=== PATIENT | male | born 1965 | race Caucasian/White ===

== ENCOUNTER 2022-12-05 14:51 | Emergency (ER) | payer OTHER, SELFPAY ==
[2022-12-05] VITALS (10 sets, daily range): BP systolic 132–172; BP diastolic 83–101; PULSE 90–106; RESP 16; TEMP 36.5; O2SAT 97–100; BMI 25.7
--- NOTE | 2022-12-05 15:07 | DI.RAD.S_ITS ---
PROCEDURE: XR CHEST 1V INDICATIONS: chest pain TECHNIQUE: One view of the chest was acquired. COMPARISON: None. FINDINGS: Surgical changes and devices: None. Lungs and pleura: Lungs are clear. No pleural effusions or pneumothorax. Mediastinum: Mediastinal contours appear normal. Heart size is normal. Bones and chest wall: No suspicious bony lesions. Overlying soft tissues appear unremarkable. IMPRESSION: No acute cardiopulmonary process. Dictated by: Perry Sharma M.D. on 12/05/2022 at 16:27 Approved by: Perry Sharma M.D. on 12/05/2022 at 16:27
[2022-12-05 15:42] LABS: Add Manual Diff / Slide Review NO; Basophils Absolute Auto 0 /uL (0-100); Basophils Percent Auto 0.3 % (0-2); Eosinophils Absolute Auto 100 /uL (0-450); Eosinophils Percent Auto 0.7 % (2-4); Hematocrit 36.8 % (41-53); Hemoglobin 12.5 g/dL (13.5-17.5); Lymphocytes Absolute Auto 1100 /uL (1100-4500); Lymphocytes Percent Auto 12.8 % (25-40); Mean Corpuscular HGB Conc 34.1 % (30-36); Mean Corpuscular Hemoglobin 28.7 PG (26-34); Mean Corpuscular Volume 84.3 fL (80-100); Monocytes Absolute Auto 300 /uL (0-900); Monocytes Percent Auto 3.5 % (3-14); Neutrophils Absolute Auto 7300 /uL (1500-7000); Neutrophils Percent Auto 82.7 % (50-75); Platelet Count 270 X10^3/uL (150-400); Red Blood Cell Count 4.36 X10^6/uL (4.5-5.9); Red Cell Distribution Width 13.7 % (11.6-14.8); White Blood Cell Count 8.9 X10^3/uL (4.5-11.0)
[2022-12-05 15:49] LABS: Alanine Aminotransferase 20 IU/L (<50); Albumin 4.5 g/dL (3.5-5.0); Albumin Globulin Ratio 1.3 (1.0-2.8); Alkaline Phosphatase 95 U/L (38-126); Aspartate Aminotransferase 21 IU/L (17-59); BUN Creatinine Ratio 16.6 (6-22); Bilirubin Total 0.4 mg/dL (0.2-1.3); Blood Urea Nitrogen 28 mg/dL (9-20); Calcium 9.4 mg/dL (8.4-10.2); Carbon Dioxide 23 mmol/L (22-32); Chloride 100 mmol/L (98-107); Creatine Kinase 70 U/L (55-170); Estimated Glomerular Filt Rate 47 mL/min (>60); Globulin 3.4 g/dL (1.7-4.1); Glucose 252 mg/dL (70-100); HEMOLYSIS < 15 (0-50); Lipase 142 U/L (23-300); Magnesium 2.1 mg/dL (1.6-2.3); Potassium 4.8 mmol/L (3.4-5.1); Sodium 136 mmol/L (137-145); Total Protein 7.9 g/dL (6.3-8.2)
[2022-12-05 15:53] LABS: Prothrombin Time 11.3 SECONDS (10.1-12.7)
[2022-12-05 15:56] LABS: PTT Partial Thromboplastin Tim 30 SECONDS (26-36)
[2022-12-05 16:00] LABS: Troponin I < 0.012 ng/mL (0.01-0.034)
--- NOTE | 2022-12-05 16:00 | PC.NURSE ---
Pt reports a few weeks ago his blood sugar was 500 and his potassium was 6.1. Pt saw his primary. Pt adjusted diet and report everything is fine, but then I woke up today like this.
[2022-12-05 17:25] LABS: Appearance Urine UA CLEAR; Bilirubin Urine UA NEGATIVE (NEGATIVE); Color Urine UA YELLOW; Glucose Urine UA 3+ g/dL (Negative); Ketones Urine UA NEGATIVE (NEGATIVE); Leukocyte Esterase Urine UA NEGATIVE (NEGATIVE); Nitrite Urine UA NEGATIVE (Negative); Occult Blood Urine UA TRACE-INTACT (Negative); Protein Urine UA 1+ (Negative); Urobilinogen Urine UA 0.2 E.U./dL (0.2)
[2022-12-05 17:37] LABS: Bacteria Urine None Seen; RBC Urine 0-1/HPF (0-5/HPF); Squamous Epithelial Cell Urine None Seen (0-5/HPF); WBC Urine None Seen (0-5/HPF)
[2022-12-05 17:38] LABS: Culture Indicated Urine Cult Not Indicated
[2022-12-05] MEDS: SODIUM CHLORIDE 0.9% 1,000 ML 1000 ML IV (17:38)
--- NOTE | 2022-12-05 19:01 | ED.GENADULT ---
HPI - General Adult General Chief complaint: Dizziness Stated complaint: LOC twice this morning, dizzy Time Seen by Provider: 12/05/22 17:01 Source: patient Mode of arrival: Ambulatory History of Present Illness HPI narrative: Patient is a 57-year-old male who is a diabetic. Is here for evaluation of episodes that occurred this morning. He states he got up out of bed and had a sudden onset of dizziness. He then fell and hit his right shoulder. He states he has some issues with his right shoulder and cause more discomfort. He was getting up to go to the bathroom in the event have not. He went and laid back down in bed. This happened to him once again. He has been taking his medicines. He reports that his blood sugars have been elevated at home. At the time of the events he was not having chest pain and shortness of breath or palpitations. Will vomiting. By the time I evaluated the patient here received IV fluids. He states he was feeling better. Related Data Allergies Allergy/AdvReac Type Severity Reaction Status Date / Time No Known Drug Allergies Allergy Verified 12/05/22 15:00 Review of Systems Review of Systems ROS Unobtainable: All systems reviewed & are unremarkable except as noted in HPI and below Patient History Social History Smoking Status: Never smoker Smoking Status: Never smoker Substance Use Type: does not use Exam Initial Vital Signs Initial Vital Signs: Vital Signs Temperature 97.7 F 12/05/22 15:00 Pulse Rate 104 H 12/05/22 15:00 Respiratory Rate 16 12/05/22 15:00 Blood Pressure 147/91 H 12/05/22 15:00 Pulse Oximetry 99 12/05/22 15:00 Oxygen Delivery Method Room Air 12/05/22 15:00 Const General: cooperative and comfortable HENMT Head: normal to inspection and normocephalic Resp Effort & Inspection: normal respiratory effort Auscultation: clear to auscultation bilaterally Cardio Rate: regular rate Rhythm: regular rhythm GI Inspection: normal to inspection and non-distended Skin General: no rashes or lesions noted Neuro General: patient alert, patient awake, patient oriented x3 and moves all extremities Extrem General: normal to inspection and capillary refill normal Course Orders Ordered: ED Orders 12/05/22 17:07 UA Complete [Urinalysis and Microscopic] Stat Discontinued Medications Aspirin (Aspirin 81 Mg Chew Tab) 324 mg PO NOW ONE Stop: 12/05/22 15:08 Last Admin: 12/05/22 15:19 Dose: Not Given Documented By: SB Sodium Chloride (Normal Saline 0.9%) 1,000 mls @ 1,000 mls/hr IV BOLUS ONE Stop: 12/05/22 18:00 Last Infusion: 12/05/22 18:52 Dose: 0 mls/hr Documented By: Admin: 12/05/22 17:38 Dose: 1,000 mls/hr Documented By: KAT Vital Signs Vital signs: Vital Signs - 8 hr 12/05/22 18:11 12/05/22 20:32 Pulse Rate 93 H 92 H Blood Pressure 172/97 H 172/101 H Pulse Oximetry 100 97 Oxygen Delivery Method Room Air Room Air Medical Decision Making Lab Data Lab results reviewed: Yes I reviewed the patient's lab results. 12/05/22 15:25 12/05/22 15:25 Labs: Lab Results 12/05/22 12/05/22 12/05/22 Range/Units 15:25 15:25 15:25 WBC 8.9 (4.5-11.0) X10^3/uL RBC 4.36 L (4.5-5.9) X10^6/uL Hgb 12.5 L (13.5-17.5) g/dL Hct 36.8 L (41-53) % MCV 84.3 (80-100) fL MCH 28.7 (26-34) PG MCHC 34.1 (30-36) % RDW 13.7 (11.6-14.8) % Plt Count 270 (150-400) X10^3/uL Neut % (Auto) 82.7 H (50-75) % Lymph % (Auto) 12.8 L (25-40) % [place] % (Auto) 3.5 (3-14) % Eos % (Auto) 0.7 L (2-4) % Baso % (Auto) 0.3 (0-2) % Neut # (Auto) 7300 H (2550-7703) /uL Lymph # (Auto) 1100 (7694-8885) /uL [place] # (Auto) 300 (0-900) /uL Eos # (Auto) 100 (0-450) /uL Baso # (Auto) 0 (0-100) /uL PT 11.3 (10.1-12.7) SECONDS INR 1.0 (0.9-1.3) APTT 30 (26-36) SECONDS Sodium 136 L (137-145) mmol/L Potassium 4.8 (3.4-5.1) mmol/L Chloride 100 (98-107) mmol/L Carbon Dioxide 23 (22-32) mmol/L BUN 28 H (9-20) mg/dL Creatinine 1.69 H (0.66-1.25) mg/dL Estimated GFR 47 L (>60) mL/min BUN/Creatinine Ratio 16.6 (6-22) Glucose 252 H (70-100) mg/dL Calcium 9.4 (8.4-10.2) mg/dL Magnesium 2.1 (1.6-2.3) mg/dL Total Bilirubin 0.4 (0.2-1.3) mg/dL AST 21 (17-59) IU/L ALT 20 (<50) IU/L Alkaline Phosphatase 95 (38-126) U/L Total Creatine Kinase 70 (55-170) U/L CK-MB (CK-2) TNP CK-MB (CK-2) Rel Index TNP Troponin I < 0.012 (0.01-0.034) ng/mL Total Protein 7.9 (6.3-8.2) g/dL Albumin 4.5 (3.5-5.0) g/dL Globulin 3.4 (1.7-4.1) g/dL Albumin/Globulin Ratio 1.3 (1.0-2.8) Lipase 142 (23-300) U/L Urine Color Urine Appearance Urine pH (4.5-8.0) Ur Specific [place] (1.000-1.035) Urine Protein (Negative) Urine Glucose (UA) (Negative) g/dL Urine Ketones (NEGATIVE) Urine Occult Blood (Negative) Urine Nitrate (Negative) Urine Bilirubin (NEGATIVE) Urine Urobilinogen (0.2) E.U./dL Ur Leukocyte Esterase (NEGATIVE) Urine RBC (0-5/HPF) Urine WBC (0-5/HPF) Ur Squamous Epith Cells (0-5/HPF) Urine Bacteria (None) Ur Culture Indicated? 06/12/23 Range/Units 17:07 WBC (4.5-11.0) X10^3/uL RBC (4.5-5.9) X10^6/uL Hgb (13.5-17.5) g/dL Hct (41-53) % MCV (80-100) fL MCH (26-34) PG MCHC (30-36) % RDW (11.6-14.8) % Plt Count (150-400) X10^3/uL Neut % (Auto) (50-75) % Lymph % (Auto) (25-40) % [place] % (Auto) (3-14) % Eos % (Auto) (2-4) % Baso % (Auto) (0-2) % Neut # (Auto) (6303-0163) /uL Lymph # (Auto) (2025-3676) /uL [place] # (Auto) (0-900) /uL Eos # (Auto) (0-450) /uL Baso # (Auto) (0-100) /uL PT (10.1-12.7) SECONDS INR (0.9-1.3) APTT (26-36) SECONDS Sodium (137-145) mmol/L Potassium (3.4-5.1) mmol/L Chloride (98-107) mmol/L Carbon Dioxide (22-32) mmol/L BUN (9-20) mg/dL Creatinine (0.66-1.25) mg/dL Estimated GFR (>60) mL/min BUN/Creatinine Ratio (6-22) Glucose (70-100) mg/dL Calcium (8.4-10.2) mg/dL Magnesium (1.6-2.3) mg/dL Total Bilirubin (0.2-1.3) mg/dL AST (17-59) IU/L ALT (<50) IU/L Alkaline Phosphatase (38-126) U/L Total Creatine Kinase (55-170) U/L CK-MB (CK-2) CK-MB (CK-2) Rel Index Troponin I (0.01-0.034) ng/mL Total Protein (6.3-8.2) g/dL Albumin (3.5-5.0) g/dL Globulin (1.7-4.1) g/dL Albumin/Globulin Ratio (1.0-2.8) Lipase (23-300) U/L Urine Color Yellow Urine Appearance Clear Urine pH 6.0 (4.5-8.0) Ur Specific [place] 1.010 (1.000-1.035) Urine Protein 1+ H (Negative) Urine Glucose (UA) 3+ H (Negative) g/dL Urine Ketones Negative (NEGATIVE) Urine Occult Blood Trace-intact (Negative) Urine Nitrate Negative (Negative) Urine Bilirubin Negative (NEGATIVE) Urine Urobilinogen 0.2 (0.2) E.U./dL Ur Leukocyte Esterase Negative (NEGATIVE) Urine RBC 0-1/hpf (0-5/HPF) Urine WBC None seen (0-5/HPF) Ur Squamous Epith Cells None seen (0-5/HPF) Urine Bacteria None seen (None) Ur Culture Indicated? Cult not indicated Point of Care Testing Glucose POC 245 Urine Dip Bedside Urine Glucose 1000 mg/dl Bedside Urine Bilirubin - Negative Bedside Urine Ketone - Negative Urine Specific [place] 1.010 Bedside Urine Occult Blood - Negative Bedside Urine pH 6.0 Bedside Urine Protein +/- 15 Bedside Urine Urobilinogen - Negative Bedside Urine Nitrite - Negative Bedside Urine Leukocytes - Negative Esterase Point of care testing: Point of Care Testing Glucose POC 245 Urine Dip Bedside Urine Glucose 1000 mg/dl Bedside Urine Bilirubin - Negative Bedside Urine Ketone - Negative Urine Specific [place] 1.010 Bedside Urine Occult Blood - Negative Bedside Urine pH 6.0 Bedside Urine Protein +/- 15 Bedside Urine Urobilinogen - Negative Bedside Urine Nitrite - Negative Bedside Urine Leukocytes - Negative Esterase Imaging Data Chest x-ray: Radiologist's Impression: PROCEDURE:? XR CHEST 1V ? INDICATIONS:? chest pain ? TECHNIQUE:? One view of the chest was acquired.? ? COMPARISON:? None. ? FINDINGS:? ? Surgical changes and devices:? None.? ? Lungs and pleura:? Lungs are clear.? No pleural effusions or pneumothorax.? ? Mediastinum:? Mediastinal contours appear normal.? Heart size is normal.? ? Bones and chest wall:? No suspicious bony lesions.? Overlying soft tissues appear unremarkable.? ? IMPRESSION:? No acute cardiopulmonary process. ECG Data Attestation: I personally reviewed and interpreted this ECG as follows: Interpretation: Sinus rhythm Ventricular rate of 98 Normal axis Normal QRS Normal QTC Nonspecific ST T wave changes MDM Narrative Medical decision making narrative: Workup here in the emergency department is unremarkable. He is afebrile. Labs are unremarkable except that he is hyperglycemic but he is not in DKA. He does feel better after fluids. No further workup required here in the emergency department. Low suspicion for seizure, stroke, TIA, or ACS. Patient does not have an arrhythmia on his EKG. Provided reassurance to the patient. Advised that he continue to take all of his medications as directed. He was given return precautions. He expressed understanding and agreement. Discharge Plan Departure Patient Disposition: Home Clinical Impression: Hyperglycemia, Dizziness Instructions: DI for Dizziness-Nonvertigo Activity Restrictions/Additional Instructions: I do recommend that you increase your fluid intake. Be sure that you were taking all of your medications as directed. Return to the emergency department for new or worsening symptoms. Stand Alone Forms: Patient Portal/API
--- NOTE | 2022-12-05 19:02 | PC.NURSE ---
Ambulation trial per provider direction. Pt sits up and feels a little dizzy, but then it subsides quickly. Pt able to ambulate with no difficultly. Steady on feet. Pt reports I feel so much better, I'm ready to go home. Provider made aware.
== END 2022-12-05 20:35 | disposition home or self-care (01) ==
PROVIDERS: Emergency Medicine; Emergency Provider Emergency Medicine
DX: E11.65 Type 2 diabetes mellitus with hyperglycemia (principal); R42 Dizziness and giddiness; R07.9 Chest pain, unspecified; W18.30XA Fall on same level, unspecified, initial encounter
CPT/HCPCS: 36415; 71045; 80053; 81001; 81003; 82550; 82962; 83690; 83735; 84484; 85025; 85610; 85730; 93005; 99284

== ENCOUNTER → 2022-12-30 18:42 | Outpatient (CLI) | payer OTHER, SELFPAY ==
--- NOTE | 2022-12-30 18:44 | DI.MRI.S_ITS ---
PROCEDURE: MR SHOULDER RT WO CON INDICATIONS: RIGHT SHOULDER PAIN TECHNIQUE: Noncontrast oblique coronal T2 fast spin echo with fat saturation, oblique sagittal T1 spin echo and T2 fast spin echo with fat saturation, axial T1 spin echo and T2 fast spin echo with fat saturation through the shoulder. COMPARISON: Non. FINDINGS: Image quality: Excellent. Rotator cuff: There is intermediate-grade partial-thickness tear of the supraspinatus and subscapularis tendons involving both articular and bursal surfaces, as well as the footprint. There is moderate to severe tendinosis of the supraspinatus and subscapularis tendons. No supraspinatus or subscapularis tendon retraction muscle atrophy. Low-grade partial thickness tear is seen in the footprint of the infraspinatus. No infraspinatus muscle atrophy. Bones and bursae: No bone marrow contusions or fractures. There is moderate acromioclavicular and glenohumeral joint degeneration. The acromion demonstrates conventional anatomy, without an os acromiale. There is small glenohumeral joint effusion.. Capsule and soft tissues: There is superior labral tear involving the biceps anchor. The long head of the biceps tendon demonstrates normal location and morphology. The rotator interval appears normal, without fibrosis. The coracohumeral ligament is normal in thickness. IMPRESSION: 1. Intermediate grade partial-thickness tear of the supraspinatus and subscapularis tendons and associated [id number] tendinosis. 2. Low-grade partial-thickness tear of the infraspinatus tendon. 3. Moderate acromioclavicular and glenohumeral joint degeneration. 4. Superior labral tear involving the biceps anchor. 5. Small glenohumeral joint effusion. Dictated by: Robina Spears M.D. on 01/02/2023 at 11:04 Approved by: Robina Spears M.D. on 01/02/2023 at 11:13
== END ==
PROVIDERS: Referring Provider Family Medicine; Visit Provider Family Medicine
DX: M75.111 Incomplete rotator cuff tear or rupture of right shoulder, not specified as traumatic (principal); M19.011 Primary osteoarthritis, right shoulder; S43.491A Other sprain of right shoulder joint, initial encounter; M25.411 Effusion, right shoulder; M25.519 Pain in unspecified shoulder; R53.1 Weakness; R29.898 Other symptoms and signs involving the musculoskeletal system
CPT/HCPCS: 73221

== ENCOUNTER 2023-04-27 12:41 | Emergency (ER) | payer OTHER, SELFPAY ==
[2023-04-27 12:59] VITALS: BP 139/89; PULSE 105; RESP 20; TEMP 36.9; O2SAT 99; BMI 25.0
--- NOTE | 2023-04-27 13:17 | PC.NURSE ---
provider at bedside
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
--- NOTE | 2023-04-27 13:18 | PC.NURSE ---
put in C-collar due to neck pain
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
--- NOTE | 2023-04-27 13:39 | PC.NURSE ---
back from CT scan
[2023-04-27 13:40] VITALS: BP 156/83; PULSE 98; RESP 18; O2SAT 98
[2023-04-27] MEDS: ACETAMINOPHEN 325 MG TABLET 650 MG PO (13:50)
[2023-04-27 13:54] VITALS: BP 155/96; PULSE 95; RESP 20; TEMP 37; O2SAT 100
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
[2023-04-27 14:30] VITALS: BP 158/95; PULSE 90; RESP 18; O2SAT 100
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
[2023-04-27 15:55] VITALS: BP 155/97; PULSE 90; TEMP 37.2; O2SAT 99
== END 2023-04-27 15:57 | disposition home or self-care (01) ==
PROVIDERS: Emergency Provider Physician Assistant
DX: S16.1XXA Strain of muscle, fascia and tendon at neck level, initial encounter (principal); V89.2XXA Person injured in unspecified motor-vehicle accident, traffic, initial encounter
CPT/HCPCS: 70450; 72125; 99284

== ENCOUNTER 2024-03-10 18:46 | Inpatient (IN) | payer OTHER, SELFPAY ==
[2024-03-10] VITALS (24 sets, daily range): BP systolic 95–174; BP diastolic 64–103; PULSE 44–102; RESP 13–20; TEMP 36.6–36.7; O2SAT 94–100; BMI 25.0
--- NOTE | 2024-03-10 18:54 | DI.CT.S_ITS ---
PROCEDURE: CT ANGIO HEAD AND NECK INDICATIONS: Facial numbness, ataxia TECHNIQUE: After the administration of intravenous contrast, 1 mm thick sections acquired from the aortic arch through the [place] of Neil. 3-dimensional wetiulj-dqdsizvsd-czoxhfdquf (MIP) and/or volume rendering reformats were acquired of the central intracranial vasculature and neck separately. For radiation dose reduction, the following was used: automated exposure control, adjustment of mA and/or kV according to patient size. COMPARISON: None. FINDINGS: Image quality: Diagnostic HEAD ANGIOGRAPHY: Anterior circulation: ICAs: Moderate left and moderate to severe right cavernous carotid calcifications ACAs: Patent, but with moderate narrowing of the right A1 segment MCAs: Patent AComm: No aneurysm Venous sinuses: No occlusive thrombus Posterior circulation: Dominance: Right Vertebral arteries: The left vertebral artery appears to terminate in PICA. Etwx-av-[id number] irregularity of the right vertebral artery. Basilar artery: Sflv-ud-uybfgjrp irregularity PComms: Dominant supply on the right. Equal supply on the left with the MANUFACTURING TEST TECHNICIAN project superintendent: patent, but with thwr-po-wxandhci irregularities. NECK ANGIOGRAPHY: Aortic arch and subclavian arteries: Mild atherosclerotic calcifications CCAs: No stenosis, occlusion, or aneurysm. ICA origins (by NASCET criteria): Mild calcifications with less than 50 percent narrowing ICAs: No stenosis, occlusion or aneurysm. ECAs: Origins are patent. Vertebral arteries: Mild calcifications in the right proximal segment. Soft tissues: No significant mass, aneurysm, or lymphadenopathy Lung apices: No apical pneumothorax Bones: No acute or suspicious abnormality. 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 Multifocal irregularities of the intracranial vasculature, most notably the right A1, bilateral project superintendent, and vertebrobasilar arteries. These may represent intracranial atherosclerosis, less commonly also vasculitis and vasospasm. If there is further concern for infarct, consider MRI. Any quantitative measurements of stenosis were performed using NASCET criteria. Dictated by: Stan May M.D. on 03/10/2024 at 19:47 Approved by: Stan May M.D. on 03/10/2024 at 19:53
--- NOTE | 2024-03-10 18:55 | ED.GENADULT ---
HPI - General Adult General Chief complaint: Neuro Symptoms/Deficit Stated complaint: Feel like having a stroke Time Seen by Provider: 03/10/24 18:50 Source: patient and family Mode of arrival: Ambulatory Limitations: no limitations History of Present Illness HPI narrative: Patient is a 58-year-old male. Insulin-dependent diabetic. Not on anticoagulation. No history of cardiovascular or neurologic disease who presents to the emergency department for concerns of a stroke. He states that approximately 530 this morning he woke up. He states he went to go turn off the fan and use the restroom when he stated that he was very unsteady on his feet. He felt like his left side was weak. He actually did fall but did not injure anything. Did not hit his head. He did not arrived to the emergency department until this evening. He states he slept most of the day. He denies headache, vision changes, problems breathing, chest pain, abdominal pain, nausea vomiting. He states he feels like he was having tingling to the left side of his face and also the fingertips of his left hand. He noticed this when he tried to brush his teeth this morning. He also states that he feels like he was weak in his left arm. His symptoms have been persistent throughout the day. Do not wax and wane. Has not improved. Has never had symptoms like this in the past. Has not tried anything for symptoms prior to arrival. Related Data Allergies Allergy/AdvReac Type Severity Reaction Status Date / Time No Known Drug Allergies Allergy Verified 12/05/22 15:00 Review of Systems Review of Systems ROS Unobtainable: All systems reviewed & are unremarkable except as noted in HPI and below Patient History Social History Smoking Status: Never smoker Smoking Status: Never smoker Substance Use Type: does not use Exam Initial Vital Signs Initial Vital Signs: Vital Signs Temperature 98.1 F 03/10/24 18:49 Pulse Rate 102 H 03/10/24 18:49 Respiratory Rate 16 03/10/24 18:49 Blood Pressure 165/100 H 03/10/24 18:49 Pulse Oximetry 98 03/10/24 18:49 Oxygen Delivery Method Room Air 03/10/24 18:49 Const General: cooperative, comfortable and No ill appearing HENMT Head: normal to inspection and normocephalic Mouth: oral mucosae normal and moist mucous membranes Eyes EOM: EOM intact bilaterally Resp Effort & Inspection: normal respiratory effort Auscultation: clear to auscultation bilaterally Cardio Rate: regular rate Rhythm: regular rhythm GI Inspection: normal to inspection and non-distended Palpation: soft Skin General: no rashes or lesions noted Neuro General: patient alert, patient awake, patient oriented x3 and moves all extremities Cranial Nerves: CN's II-XI intact bilaterally Speech: speech normal Motor: strength 5/5 throughout Sensory Exam: no sensory deficits noted Coordination: [id number]-[id number] test normal and ldff-ep-izel test normal Extrem General: normal to inspection, capillary refill normal and No edema Scores GCS [place] coma scale eye opening: Spontaneous [place] coma scale verbal response: Orientated [place] coma scale motor response: Obey commands Rosalie coma scale total score: 15 NIH Stroke Scale Level of Conciousness: Alert, keenly responsive Ask month/age: Answers both questions correctly. Open/close eyes, close hand: Performs both tasks correctly Best gaze horizontal: Normal Visual jackson: No visual loss Facial palsy: Normal symetrical movement Left arm drift: No drift for full 10 sec Right arm drift: No drift for full 10 sec Left leg drift: No drift for full 5 sec Right leg drift: No drift for full 5 sec Limb ataxia: Absent Sensory on face/arms/legs: Normal, no sensory loss Best language: No aphasia, normal Dysarthria: Normal Extinction or inattention: No abnormality Total NIH Stroke scale score: 0 Course Orders Ordered: ED Orders 03/10/24 18:51 EKG-12 Lead Stat 03/10/24 18:54 CT angio head and neck Stat CT head/brain wo con Stat 03/10/24 18:59 A1C [Hemoglobin A1C% w Est Avg Glu] Stat Complete Blood Count AUTO DIFF Stat Comprehensive Metabolic Panel Stat Ethanol (ETOH) Stat Lipase Stat Magnesium Stat PTT Partial Thromboplastin Enrrique Stat Prothrombin Time INR Stat Troponin & CK Cardiac Panel Stat 03/10/24 19:50 Urinalysis and Microscopic Stat Acetaminophen (Acetaminophen 325 Mg Tablet) 650 mg PO Q6H PRN PRN Reason: Fever/Mild Pain (1-3) Aspirin (Aspirin Ec 81 Mg Tablet) 81 mg PO DAILY [facility] Clopidogrel Bisulfate (Clopidogrel 75 Mg Tablet) 75 mg PO DAILY [facility] Heparin Sodium (Porcine) (Heparin 5,000 Unit/Ml Vial) 5,000 unit SUBCUT BID ADRIÁN Sodium Chloride (Normal Saline 0.9%) 1,000 mls @ 100 mls/hr IV CONT ADRIÁN Naloxone HCl (Naloxone 0.4 Mg/Ml Vial) 0.2 mg IV Q2MIN PRN PRN Reason: Opiate Reversal Ondansetron HCl (Ondansetron 4 Mg/2 Ml Inj) 4 mg IV Q8HR PRN PRN Reason: Nausea And Vomiting Discontinued Medications Aspirin (Aspirin 81 Mg Chew Tab) 324 mg PO NOW ONE Stop: 03/10/24 20:18 Last Admin: 03/10/24 20:25 Dose: 324 mg Documented By: JOSE LUIS Clopidogrel Bisulfate (Clopidogrel 75 Mg Tablet) 300 mg PO NOW ONE Stop: 03/10/24 20:38 Last Admin: 03/10/24 20:43 Dose: 300 mg Documented By: MPO Sodium Chloride (Normal Saline 0.9%) 1,000 mls @ 500 mls/hr IV BOLUS ONE Stop: 03/10/24 21:11 Last Admin: 03/10/24 19:18 Dose: 500 mls/hr Documented By: MPO Ondansetron HCl (Ondansetron 4 Mg/2 Ml Inj) 4 mg IV NOW ONE Stop: 03/10/24 19:17 Last Admin: 03/10/24 19:18 Dose: 4 mg Documented By: JOSE LUIS Vital Signs Vital signs: Vital Signs - 8 hr 03/10/24 18:49 03/10/24 18:51 03/10/24 18:56 Temperature 98.1 F Pulse Rate 102 H 102 H Respiratory Rate 16 Blood Pressure 165/100 H 165/103 H Pulse Oximetry 98 99 Oxygen Delivery Method Room Air 03/10/24 18:56 03/10/24 19:00 03/10/24 19:09 Temperature Pulse Rate 98 H 95 H 56 L Respiratory Rate 13 13 17 Blood Pressure Pulse Oximetry Oxygen Delivery Method 03/10/24 19:09 03/10/24 19:10 03/10/24 19:13 Temperature Pulse Rate 44 L 58 L Respiratory Rate 20 Blood Pressure 95/64 100/67 Pulse Oximetry Oxygen Delivery Method 03/10/24 19:13 03/10/24 19:14 03/10/24 19:14 Temperature Pulse Rate 73 78 Respiratory Rate 14 15 Blood Pressure 125/84 Pulse Oximetry 97 98 Oxygen Delivery Method 03/10/24 19:36 03/10/24 19:40 03/10/24 19:56 Temperature Pulse Rate 87 88 Respiratory Rate Blood Pressure 174/84 H Pulse Oximetry 94 100 Oxygen Delivery Method 03/10/24 19:56 03/10/24 20:00 03/10/24 20:00 Temperature Pulse Rate 87 89 Respiratory Rate 18 Blood Pressure 164/98 H Pulse Oximetry 99 100 Oxygen Delivery Method 03/10/24 20:10 03/10/24 20:10 03/10/24 20:20 Temperature Pulse Rate 86 Respiratory Rate Blood Pressure 135/83 136/84 Pulse Oximetry 99 Oxygen Delivery Method 03/10/24 20:20 03/10/24 20:30 03/10/24 20:30 Temperature Pulse Rate 87 89 Respiratory Rate Blood Pressure 134/87 Pulse Oximetry 100 98 Oxygen Delivery Method 03/10/24 20:40 03/10/24 20:40 Temperature Pulse Rate 89 Respiratory Rate Blood Pressure 133/85 Pulse Oximetry 97 Oxygen Delivery Method Medical Decision Making Medical Records Medical records reviewed: Yes I reviewed the patient's medical records. Lab Data Lab results reviewed: Yes I reviewed the patient's lab results. 03/10/24 18:59 03/10/24 18:59 Labs: Lab Results 03/10/24 03/10/24 Range/Units 18:59 19:50 WBC 7.2 (4.5-11.0) X10^3/uL RBC 4.87 (4.5-5.9) X10^6/uL Hgb 13.6 (13.5-17.5) g/dL Hct 41.7 (41-53) % MCV 85.7 (80-100) fL MCH 27.9 (26-34) PG MCHC 32.5 (30-36) % RDW 13.8 (11.6-14.8) % Plt Count 346 (150-400) X10^3/uL Neut % (Auto) 58.7 (50-75) % Lymph % (Auto) 31.2 (25-40) % [place] % (Auto) 5.7 (3-14) % Eos % (Auto) 3.6 (2-4) % Baso % (Auto) 0.8 (0-2) % Neut # (Auto) 4300 (1407-3676) /uL Lymph # (Auto) 2300 (3809-9894) /uL [place] # (Auto) 400 (0-900) /uL Eos # (Auto) 300 (0-450) /uL Baso # (Auto) 100 (0-100) /uL PT 9.8 (9.4-12.5) SECONDS INR 0.9 (0.9-1.3) APTT 38 H (25.1-36.5) SECONDS Sodium 132 L (137-145) mmol/L Potassium 5.0 (3.4-5.1) mmol/L Chloride 100 (98-107) mmol/L Carbon Dioxide 20 L (22-32) mmol/L BUN 34 H (9-20) mg/dL Creatinine 1.75 H (0.66-1.25) mg/dL Estimated GFR 45 L (>60) mL/min BUN/Creatinine Ratio 19.4 (6-22) Glucose 327 H (70-100) mg/dL Hemoglobin A1c 13.2 H (4.0-6.0) % Calcium 9.2 (8.4-10.2) mg/dL Magnesium 2.3 (1.6-2.3) mg/dL Total Bilirubin 0.4 (0.2-1.3) mg/dL AST 20 (17-59) IU/L ALT 14 (<50) IU/L Alkaline Phosphatase 108 (38-126) U/L Total Creatine Kinase 58 (55-170) U/L Troponin I < 0.012 (0.01-0.034) ng/mL Total Protein 7.5 (6.3-8.2) g/dL Albumin 4.2 (3.5-5.0) g/dL Globulin 3.3 (1.7-4.1) g/dL Albumin/Globulin Ratio 1.3 (1.0-2.8) Lipase 296 (23-300) U/L Urine Color Yellow Urine Appearance Clear Urine pH 7.0 (4.5-8.0) Ur Specific [place] <=1.005 (1.000-1.035) Urine Protein Trace H (Negative) Urine Glucose (UA) 3+ H (Negative) g/dL Urine Ketones Negative (NEGATIVE) Urine Occult Blood Negative (Negative) Urine Nitrate Negative (Negative) Urine Bilirubin Negative (NEGATIVE) Urine Urobilinogen 0.2 (0.2) E.U./dL Ur Leukocyte Esterase Negative (NEGATIVE) Urine RBC 0-1/hpf (0-5/HPF) Urine WBC 0-1/hpf (0-5/HPF) Ur Squamous Epith Cells 0-1 /hpf (0-5/HPF) Urine Bacteria Occasional (0-1) (None) Ur Culture Indicated? Cult not indicated Vol Urine Centrifuged 10ml (spun) Ethyl Alcohol < 10 ( - 10) mg/dL Point of Care Testing Glucose POC 324 Point of care testing: Point of Care Testing Glucose POC [address] scan - head: Radiologist's Impression: PROCEDURE: CT HEAD/BRAIN WO CON INDICATIONS: Facial numbness, balance issues TECHNIQUE: Noncontrast 4.5 mm thick angled axial sections acquired from the foramen magnum to the vertex, with coronal and sagittal reformats. For radiation dose reduction, the following was used: automated exposure control, adjustment of mA and/or kV according to patient size. COMPARISON: [facility], CT, CT HEAD/BRAIN WO CON, 04/27/2023, 14:54. FINDINGS: Image quality: Diagnostic CSF spaces: Basal cisterns are patent. Lateral ventricles are symmetric. Volume: Vascular calcifications. Periventricular white matter disease is commonly seen with chronic microangiopathy. Volume loss is present. These findings are mild Brain: No acute hemorrhage. No gross loss of richardson-white differentiation Possible right lacunar infarct, age indeterminate Craniofacial structures: No significant paranasal sinus or mastoid opacity. IMPRESSION: No acute intracranial abnormality. If there is high concern for infarct, consider MRI. Age-indeterminate, chronic appearing right deep white matter possible lacunar infarct. CTA - brain/neck: Radiologist's Impression: ROCEDURE:? CT ANGIO HEAD AND NECK ? INDICATIONS:? Facial numbness, ataxia ? TECHNIQUE:?? After the administration of intravenous contrast, 1 mm thick sections acquired from the? aortic arch through the [place] of Neil.? 3-dimensional czlqrin-jftgpxgtd-kstgbmbkyj? (MIP) and/or volume rendering reformats were acquired of the central intracranial? vasculature and neck separately. For radiation dose reduction, the following was used:?? automated exposure control, adjustment of mA and/or kV according to patient size.?? ? COMPARISON:? None. ? FINDINGS:?? Image quality:? Diagnostic ? HEAD ANGIOGRAPHY: Anterior circulation: ICAs:? Moderate left and moderate to severe right cavernous carotid calcifications ACAs:? Patent, but with moderate narrowing of the right A1 segment MCAs:? Patent AComm: No aneurysm Venous sinuses:? No occlusive thrombus ? Posterior circulation: Dominance:? Right Vertebral arteries:? The left vertebral artery appears to terminate in PICA.?? Ohid-pe-uoqueitz irregularity of the right vertebral artery. Basilar artery:? Cqwa-ip-ficmqban irregularity PComms:? Dominant supply on the right.? Equal supply on the left with the MAP MOUNTER second rigger:? ?patent, but with gemy-li-jchasigw irregularities. ? NECK ANGIOGRAPHY: Aortic arch and subclavian arteries:? Mild atherosclerotic calcifications CCAs: No stenosis, occlusion, or aneurysm. ICA origins (by NASCET criteria):? Mild calcifications with less than 50 percent? narrowing ICAs: No stenosis, occlusion or aneurysm.? ECAs: Origins are patent. Vertebral arteries:? Mild calcifications in the right proximal segment. ? Soft tissues: No significant mass, aneurysm, or lymphadenopathy Lung apices:? No apical pneumothorax Bones: No acute or suspicious abnormality.? IMPRESSION:?? 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 Multifocal? irregularities of the intracranial vasculature, most notably the right A1, bilateral? second rigger, and vertebrobasilar arteries.? These may represent intracranial atherosclerosis,? less commonly also vasculitis and vasospasm.? ? If there is further concern for infarct, consider MRI. ECG Data Attestation: I personally reviewed and interpreted this ECG as follows: Interpretation: Sinus bradycardia Ventricular rate of 50 Normal axis Normal QRS No ST T wave changes MDM Narrative Medical decision making narrative: Last known normal was last evening before going to bed. Woke up this morning at 0530 in his had persistent symptoms since then. Not a candidate for tPA. Has a NIH score of 0. Patient is hyperglycemic. Has a history of insulin-dependent diabetes. CT scan of the head is negative. CTA of the head and neck shows no acute pathology but does show intracranial atherosclerosis. I did discuss the case with Dr. Medeiros stroke neurologist the [facility] who reviewed the studies who stated that patient potentially has a subacute thalamic stroke on the right. Recommended obtaining an A1c, LDL and treating glucose with a goal 140-180. Also recommend giving full dose aspirin and full-dose Plavix. Recommended continuing dual anti-platelet for the next 90 days. Also recommended statin. Patient did have 1 episode of asymptomatic bradycardia here in the ER which resolved on its own. Sinus rhythm on the EKG. Discussed the case with Dr. Paredes hospitalist on-call who will admit for further evaluation and treatment. Discussed the need for admission with the patient. He expressed understanding and agreement as well. Discharge Plan Departure Patient Disposition: Admitted as Observation Clinical Impression: Ataxia, Distal paresthesia, Cerebrovascular accident Admit Date/Time: 03/10/24 20:43 Admit Provider: Gilmar Paredes
--- NOTE | 2024-03-10 19:07 | EKG_ITS ---
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
[2024-03-10] MEDS: SODIUM CHLORIDE 0.9% 1,000 ML 500 ML IV (19:18)
[2024-03-10] MEDS: ONDANSETRON 4 MG/2 ML INJ IV (19:18)
[2024-03-10 19:19] LABS: Add Manual Diff / Slide Review NO; Basophils Absolute Auto 100 /uL (0-100); Basophils Percent Auto 0.8 % (0-2); Eosinophils Absolute Auto 300 /uL (0-450); Eosinophils Percent Auto 3.6 % (2-4); Hematocrit 41.7 % (41-53); Hemoglobin 13.6 g/dL (13.5-17.5); Lymphocytes Absolute Auto 2300 /uL (1100-4500); Lymphocytes Percent Auto 31.2 % (25-40); Mean Corpuscular HGB Conc 32.5 % (30-36); Mean Corpuscular Hemoglobin 27.9 PG (26-34); Mean Corpuscular Volume 85.7 fL (80-100); Monocytes Absolute Auto 400 /uL (0-900); Monocytes Percent Auto 5.7 % (3-14); Neutrophils Absolute Auto 4300 /uL (1500-7000); Neutrophils Percent Auto 58.7 % (50-75); Platelet Count 346 X10^3/uL (150-400); Red Blood Cell Count 4.87 X10^6/uL (4.5-5.9); Red Cell Distribution Width 13.8 % (11.6-14.8); White Blood Cell Count 7.2 X10^3/uL (4.5-11.0)
[2024-03-10 19:25] LABS: INR 0.9 (0.9-1.3); Prothrombin Time 9.8 SECONDS (9.4-12.5)
--- NOTE | 2024-03-10 19:27 | PC.NURSE ---
Addendum entered by Marisel Valentine R.N. 03/10/24 19:39: Pt returns from CT and states that nausea has resolved. VS WNL at this time. Original Note: Pt arrived to ED today via private vehicle due to stroke-like sx. Pt states that he woke up this morning at 0500 and felt left sided numbness, tingling and weakness. Pt states that the left side of his face feels numb and he has had difficulty walking all day. Denies any vision changes or loss of vision. Hx of type II diabetes. BG 324 at the time of triage. Pt a&ox4. Dr Rodriguez at bedside during triage.
[2024-03-10 19:28] LABS: PTT Partial Thromboplastin Tim 38 SECONDS (25.1-36.5)
[2024-03-10 19:38] LABS: Alanine Aminotransferase 14 IU/L (<50); Albumin 4.2 g/dL (3.5-5.0); Albumin Globulin Ratio 1.3 (1.0-2.8); Alkaline Phosphatase 108 U/L (38-126); Aspartate Aminotransferase 20 IU/L (17-59); BUN Creatinine Ratio 19.4 (6-22); Bilirubin Total 0.4 mg/dL (0.2-1.3); Blood Urea Nitrogen 34 mg/dL (9-20); Calcium 9.2 mg/dL (8.4-10.2); Carbon Dioxide 20 mmol/L (22-32); Chloride 100 mmol/L (98-107); Creatine Kinase 58 U/L (55-170); Estimated Glomerular Filt Rate 45 mL/min (>60); Ethanol (ETOH) < 10 mg/dL; Globulin 3.3 g/dL (1.7-4.1); Glucose 327 mg/dL (70-100); HEMOLYSIS 33 (0-50); Lipase 296 U/L (23-300); Magnesium 2.3 mg/dL (1.6-2.3); Sodium 132 mmol/L (137-145); Total Protein 7.5 g/dL (6.3-8.2)
[2024-03-10 19:49] LABS: Troponin I < 0.012 ng/mL (0.01-0.034)
[2024-03-10 20:04] LABS: Appearance Urine UA CLEAR; Bilirubin Urine UA NEGATIVE (NEGATIVE); Color Urine UA YELLOW; Glucose Urine UA 3+ g/dL (Negative); Ketones Urine UA NEGATIVE (NEGATIVE); Leukocyte Esterase Urine UA NEGATIVE (NEGATIVE); Nitrite Urine UA NEGATIVE (Negative); Occult Blood Urine UA NEGATIVE (Negative); Protein Urine UA TRACE (Negative); Specific Gravity Urine UA <=1.005 (1.000-1.035); Urobilinogen Urine UA 0.2 E.U./dL (0.2)
[2024-03-10 20:10] LABS: Bacteria Urine Occasional (0-1); Culture Indicated Urine Cult Not Indicated; RBC Urine 0-1/HPF (0-5/HPF); Squamous Epithelial Cell Urine 0-1 /HPF (0-5/HPF); Urine Volume 10mL (spun); WBC Urine 0-1/HPF (0-5/HPF)
[2024-03-10] MEDS: ASPIRIN 81 MG CHEW TAB 324 MG PO (20:25)
[2024-03-10] MEDS: CLOPIDOGREL 75 MG TABLET 300 MG PO (20:43)
[2024-03-10 20:52] LABS: Hemoglobin A1C% w Est Avg Glu 13.2 % (4.0-6.0)
[2024-03-11] MEDS: SODIUM CHLORIDE 0.9% 1,000 ML 100 ML IV ×2 (01:13→09:31)
[2024-03-11] MEDS: ATORVASTATIN 20 MG TABLET 10 MG PO (01:14)
[2024-03-11] MEDS: INSULIN GLARGINE 100 UNIT/ML 3ML PEN 20 UNIT SUBCUT (01:14)
--- NOTE | 2024-03-11 01:37 | P.HP_ITS ---
History of Present Illness History of Present Illness Chief complaint: Feel like having a stroke LKN Last Night Narrative: 58 year old male with past medical history of HTN, NIDDM and HLD presents with complaints of left sided deficity. Per the patient's report, the patient woke up yesterday morning around 5:30 AM and was ambulating to the bathroom. The patient states that he felt unsteady on his feet and noticed that his left side was weak. The patient also noted some numbness in his face and left side as well. However, instead of going to the ER, the patient went back and slept. The patient however was concern when he woke up again this evening and went to the hospital. The patient otherwise denies any vision or speech changes. The patient also denies any fever, chills, nausea, vomiting, diarrhea, coughing or shortness of breath. In our ER, the patient was hemodynamically stable. Per our ER physician, the patient NIH score was 0. CT/CTA of head and neck was reported by our radiologist to be normal. I did ask our ER physician to consult with oncall neurologist who did reviewed the CT/CTA scan which thought there might be sign of subacute CVA and recommended to admit the patient for observation with dual antiplatelet therapy and MRI of brain in AM. Of note, per our ER physician, patient strength were equal on evaluation but the only complaints was left sided numbness though exam was non focal. [facility] Social History household members: spouse Smoking Status: Never smoker alcohol intake: never Meds Home Medications and Allergies Home Medications Medication Instructions Recorded Confirmed Type allopurinol 300 mg tablet 300 mg PO DAILY 03/10/24 03/10/24 History aspirin 81 mg tablet,delayed 81 mg PO DAILY 03/10/24 03/10/24 History release empagliflozin 25 mg tablet 25 mg PO DAILY 03/10/24 03/10/24 History (Jardiance) loratadine 10 mg tablet 10 mg PO DAILY 03/10/24 03/10/24 History losartan 25 mg tablet 50 mg PO BEDTIME 03/10/24 03/10/24 History metformin 500 mg tablet,extended 500 mg PO BID 03/10/24 03/10/24 History release 24 hr simvastatin 20 mg tablet 20 mg PO ONCE PM 03/10/24 03/10/24 History Allergies Allergy/AdvReac Type Severity Reaction Status Date / Time No Known Drug Allergies Allergy Verified 12/05/22 15:00 Review of Systems Review of Systems Narrative: 12 points of ROS are negative except for what was mentioned per HPI. Exam Vital Signs (past 8 hours): - 03/10/24 18:49 03/10/24 18:51 03/10/24 18:56 Temperature 98.1 F Pulse Rate 102 H 102 H Respiratory Rate 16 Blood Pressure 165/100 H 165/103 H Pulse Oximetry 98 99 Oxygen Delivery Method Room Air Oxygen Flow Rate 03/10/24 18:56 03/10/24 19:00 03/10/24 19:09 Temperature Pulse Rate 98 H 95 H 56 L Respiratory Rate 13 13 17 Blood Pressure Pulse Oximetry Oxygen Delivery Method Oxygen Flow Rate 03/10/24 19:09 03/10/24 19:10 03/10/24 19:13 Temperature Pulse Rate 44 L 58 L Respiratory Rate 20 Blood Pressure 95/64 100/67 Pulse Oximetry Oxygen Delivery Method Oxygen Flow Rate 03/10/24 19:13 03/10/24 19:14 03/10/24 19:14 Temperature Pulse Rate 73 78 Respiratory Rate 14 15 Blood Pressure 125/84 Pulse Oximetry 97 98 Oxygen Delivery Method Oxygen Flow Rate 03/10/24 19:36 03/10/24 19:40 03/10/24 19:56 Temperature Pulse Rate 87 88 Respiratory Rate Blood Pressure 174/84 H Pulse Oximetry 94 100 Oxygen Delivery Method Oxygen Flow Rate 03/10/24 19:56 03/10/24 20:00 03/10/24 20:00 Temperature Pulse Rate 87 89 Respiratory Rate 18 Blood Pressure 164/98 H Pulse Oximetry 99 100 Oxygen Delivery Method Oxygen Flow Rate 03/10/24 20:10 03/10/24 20:10 03/10/24 20:20 Temperature Pulse Rate 86 Respiratory Rate Blood Pressure 135/83 136/84 Pulse Oximetry 99 Oxygen Delivery Method Oxygen Flow Rate 03/10/24 20:20 03/10/24 20:30 03/10/24 20:30 Temperature Pulse Rate 87 89 Respiratory Rate Blood Pressure 134/87 Pulse Oximetry 100 98 Oxygen Delivery Method Oxygen Flow Rate 03/10/24 20:40 03/10/24 20:40 03/10/24 20:50 Temperature Pulse Rate 89 Respiratory Rate Blood Pressure 133/85 132/89 Pulse Oximetry 97 Oxygen Delivery Method Oxygen Flow Rate 03/10/24 20:50 03/10/24 21:00 03/10/24 21:00 Temperature Pulse Rate 90 85 Respiratory Rate Blood Pressure 130/85 Pulse Oximetry 98 98 Oxygen Delivery Method Oxygen Flow Rate 03/10/24 21:10 03/10/24 21:10 03/10/24 21:20 Temperature Pulse Rate 86 Respiratory Rate Blood Pressure 138/88 148/93 H Pulse Oximetry 98 Oxygen Delivery Method Oxygen Flow Rate 03/10/24 21:20 03/10/24 21:30 03/10/24 21:30 Temperature Pulse Rate 87 88 Respiratory Rate Blood Pressure 135/81 Pulse Oximetry 99 97 Oxygen Delivery Method Oxygen Flow Rate 03/10/24 21:40 03/10/24 21:40 03/10/24 21:50 Temperature Pulse Rate 90 Respiratory Rate Blood Pressure 132/81 129/81 Pulse Oximetry 99 Oxygen Delivery Method Oxygen Flow Rate 03/10/24 21:50 03/10/24 22:15 Temperature 97.8 F Pulse Rate 87 86 Respiratory Rate 18 18 Blood Pressure 139/95 H Pulse Oximetry 97 97 Oxygen Delivery Method Oxygen Flow Rate 0 Oxygen Delivery Method Room Air Oxygen Flow Rate 0 Narrative Exam Narrative: GENERAL: The patient is not in any acute distressed. Awake and alert. HEENT: Nonicteric sclerae, PERRLA, EOMI. Oropharynx clear. Moist mucous membranes. Conjunctivae appear well perfused. HEART: Regular rate and rhythm without murmurs. No lower extremities edema. LUNGS: Clear to auscultation bilaterally. No wheezing, crackles or rhonchi ABDOMEN: Soft, positive bowel sounds, nontender. SKIN: No rash, no excessive bruising, petechiae, or purpura. NEUROLOGIC: AxO x 3. Cranial nerves II-XII intact without motor/sensory deficit. Objective Labs 03/10/24 18:59 03/10/24 18:59 Labs: Laboratory Results - last 24 hr 03/10/24 03/10/24 18:59 19:50 WBC 7.2 RBC 4.87 Hgb 13.6 Hct 41.7 MCV 85.7 MCH 27.9 MCHC 32.5 RDW 13.8 Plt Count 346 Neut % (Auto) 58.7 Lymph % (Auto) 31.2 [place] % (Auto) 5.7 Eos % (Auto) 3.6 Baso % (Auto) 0.8 Neut # (Auto) 4300 Lymph # (Auto) 2300 [place] # (Auto) 400 Eos # (Auto) 300 Baso # (Auto) 100 PT 9.8 INR 0.9 APTT 38 H Sodium 132 L Potassium 5.0 Chloride 100 Carbon Dioxide 20 L BUN 34 H Creatinine 1.75 H Estimated GFR 45 L BUN/Creatinine Ratio 19.4 Glucose 327 H Hemoglobin A1c 13.2 H Calcium 9.2 Magnesium 2.3 Total Bilirubin 0.4 AST 20 ALT 14 Alkaline Phosphatase 108 Total Creatine Kinase 58 Troponin I < 0.012 Total Protein 7.5 Albumin 4.2 Globulin 3.3 Albumin/Globulin Ratio 1.3 Lipase 296 Urine Color Yellow Urine Appearance Clear Urine pH 7.0 Ur Specific [place] <=1.005 Urine Protein Trace H Urine Glucose (UA) 3+ H Urine Ketones Negative Urine Occult Blood Negative Urine Nitrate Negative Urine Bilirubin Negative Urine Urobilinogen 0.2 Ur Leukocyte Esterase Negative Urine RBC 0-1/hpf Urine WBC 0-1/hpf Ur Squamous Epith Cells 0-1 /hpf Urine Bacteria Occasional (0-1) Ur Culture Indicated? Cult not indicated Vol Urine Centrifuged 10ml (spun) Ethyl Alcohol < 10 Assessment & Plan Assessment & Plan narrative: Possible CVA with reported left sided weakness and numbness/tingling. Admit to medical telemetry under observation. Note patient strength now is normal but patient still reports of some numbness/tinging mainly in his left face and left fingers. Neurologist x ray control equipment repairer did reviewed CT/CTA that radiologist report as no acute findings. Neurologist x ray control equipment repairer suggest possible subacute CVA and recommended to admit the patient for observation with dual antiplatelet therapy and MRI of brain in AM. Continue ASA/plavix and brain MRI ordered. PT/OT/ST and echo pending. Check A1c and lipid profile. Allow for permissive HTN for next 24 hours. HTN. Again as above will allow for permissive HTN for now and hold home BP medications. HLD. Check Lipid as above and resume home statin. DVT PPx hep SQ Code status full code Disposition home in 1-2 days Time-Based Coding :: [TOTAL MINUTES] spent with patient and on the chart (including review of chart, obtaining history, exam, reviewing outside data, placing orders, documenting exam and treatment plan, and counseling patient) on [DATE].
[2024-03-11 04:34] VITALS: BP 130/85; PULSE 86; RESP 16; TEMP 36.2; O2SAT 98
[2024-03-11 06:19] LABS: Add Manual Diff / Slide Review NO; Basophils Absolute Auto 0 /uL (0-100); Basophils Percent Auto 0.8 % (0-2); Eosinophils Absolute Auto 200 /uL (0-450); Eosinophils Percent Auto 3.3 % (2-4); Hematocrit 36.7 % (41-53); Hemoglobin 12.4 g/dL (13.5-17.5); Lymphocytes Absolute Auto 1500 /uL (1100-4500); Lymphocytes Percent Auto 22.8 % (25-40); Mean Corpuscular HGB Conc 33.7 % (30-36); Mean Corpuscular Hemoglobin 28.5 PG (26-34); Mean Corpuscular Volume 84.7 fL (80-100); Monocytes Absolute Auto 400 /uL (0-900); Monocytes Percent Auto 5.9 % (3-14); Neutrophils Absolute Auto 4400 /uL (1500-7000); Neutrophils Percent Auto 67.2 % (50-75); Platelet Count 286 X10^3/uL (150-400); Red Blood Cell Count 4.33 X10^6/uL (4.5-5.9); Red Cell Distribution Width 13.7 % (11.6-14.8); White Blood Cell Count 6.5 X10^3/uL (4.5-11.0)
[2024-03-11 06:33] LABS: Alanine Aminotransferase 11 IU/L (<50); Albumin 3.5 g/dL (3.5-5.0); Albumin Globulin Ratio 1.1 (1.0-2.8); Alkaline Phosphatase 89 U/L (38-126); Aspartate Aminotransferase 18 IU/L (17-59); BUN Creatinine Ratio 17.4 (6-22); Bilirubin Total 0.3 mg/dL (0.2-1.3); Blood Urea Nitrogen 30 mg/dL (9-20); Calcium 8.6 mg/dL (8.4-10.2); Carbon Dioxide 22 mmol/L (22-32); Chloride 107 mmol/L (98-107); Cholesterol 148 mg/dL (140-199); Estimated Glomerular Filt Rate 46 mL/min (>60); Globulin 3.1 g/dL (1.7-4.1); Glucose 181 mg/dL (70-100); HDL Cholesterol 44 mg/dL (40-60); HEMOLYSIS < 15 (0-50); LDL Cholesterol Calculated 78 mg/dL (<100); Potassium 4.1 mmol/L (3.4-5.1); Sodium 135 mmol/L (137-145); Total Protein 6.6 g/dL (6.3-8.2); Triglycerides 128 mg/dL (35-150)
--- NOTE | 2024-03-11 07:23 | DI.ECHO.S_ITS ---
[facility] : : [address] : : [place] : : [id number] : : Phone: [phone] Echocardiogram Report + + :Name: LEE BOLIVAR Study Date: 03/11/2024 Height: 65 in : :[facility] ReadingLocation: Weight: 150 lb : : Gender: Male BSA: 1.8 m2 : :: 1965 Age: 58 yrs BP: 130/85 mmHg: :Reason For Study: CVA : :Ordering Physician: FELIX, : :BARTOLOME DINERO Performed By: Katiuska Larson : :Referring: BARTOLOME WASHINGTON : + + Interpretation Summary 1. The left ventricular contractility is normal. Estimated ejection fraction is greater than 60% with no segmental wall motion abnormalities. No LVH. Grade 1 diastolic dysfunction. 2. The right ventricular contractility is normal. 3. All cardiac chambers are of normal size. 4. No significant valvular abnormalities. 5. No intracardiac shunts noted on agitated saline contrast study. 6. No obvious intracardiac masses nor thrombi. 7. No hemodynamically significant pericardial effusion. 8. Low right-sided filling pressures. Conclusion: Normal biventricular systolic function with no significant valvular abnormalities Procedure: A two-dimensional transthoracic echocardiogram with color flow and Doppler was performed. The study quality was technically adequate. There is no prior echocardiogram noted for this patient. The injection was performed through an intravenous line in the right arm. The patient was in sinus rhythm with heart rates between 80-85 bpm during the exam. Left Ventricle: The left ventricle is normal in size and wall thickness. The ejection fraction is estimated to be 60-65%. Right Ventricle: The right ventricle is normal in size and function. Atria: The left atrial size is normal. Right atrial size is normal. Injection of contrast documented no interatrial shunt. Mitral Valve: The mitral valve is normal in structure and function. There is trace mitral regurgitation. Aortic Valve: The aortic valve is trileaflet. The aortic valve opens well. There is no aortic valve stenosis. No aortic regurgitation is present. Tricuspid Valve: The tricuspid valve is normal in structure and function. There is trace tricuspid regurgitation. Pulmonary artery pressures cannot be estimated because of the lack of a measurable TR jet velocity. Pulmonic Valve: The pulmonic valve leaflets are thin and pliable; valve motion is normal. There is trace pulmonic regurgitation. Great Vessels: The aortic root is normal size. The dimensions of the ascending aorta are normal. The IVC is of normal diameter and collapses greater than 50% with a sniff. This suggests a low right atrial pressure of 3 mm Hg. Pericardium/ Pleura There is no pericardial effusion. There is no pleural effusion. MMode/2D Measurements & Calculations LVIDd: 5.1 cm LVOT diam: 2.0 cm LVIDs: 3.8 cm Ao root diam: 2.9 cm FS: 26.1 % asc Aorta Diam: 3.4 cm IVSd: 0.69 cm Ao Arch Diam (Prox Trans): 2.7 cm LVPWd: 0.89 cm LV prado. diameter/BSA (cm/m^2): 2.9 LV sys. diameter/BSA (cm/m^2): 2.2 LA A2 area: 15.3 cm2 RA long axis: 4.0 cm LA A4 area: 11.3 cm2 RA area: 10.1 cm2 LA length (vol): 3.9 cm RA vol: 21.9 ml LA vol: 38.0 ml RA : 12.5 ml/m2 LA vol index: 21.7 ml/m2 IVC diam: 1.1 cm RVD1 (basal): 2.9 cm RVD2 (mid): 2.4 cm TAPSE: 1.8 cm Doppler Measurements & Calculations Ao V2 max: 109.2 cm/sec LVOT Max Yassine: 79.0 cm/sec Ao V2 mean: 80.9 cm/sec LV V1 max P.5 mmHg Ao max P.8 mmHg LV V1 VTI: 16.4 cm Ao mean P.9 mmHg STACIA(I,D): 2.5 cm2 Ao V2 VTI: 20.3 cm STACIA(V,D): 2.3 cm2 sev ratio: 0.81 STACIA indexed to BSA (cm^2/m^2): 1.5 MV E max yassine: 49.8 cm/sec PA pr(Accel): 49.9 mmHg MV A max yassine: 77.3 cm/sec MV E/A: 0.64 Med Peak E' Yassine: 6.5 cm/sec E/E' med: 7.7 Lat Peak E' Yassine: 8.9 cm/sec E/E' lat: 5.6 E/e' average: 6.7 MV dec time: 0.18 sec SV(LVOT): 51.7 ml Reading Physician:
[2024-03-11] MEDS: INSULIN LISPRO 100 UNIT/ML 3ML VIAL SUBCUT ×2 (07:54→12:24)
[2024-03-11 08:00] VITALS: BP 147/97; PULSE 87; RESP 14; TEMP 36.3; O2SAT 98
--- NOTE | 2024-03-11 09:25 | OT.IP.EVAL ---
Occupational Therapy Inpatient Evaluation/Re-Eval M1 PT/OT-IP Prior Functional Status Start: 03/11/24 09:35 Freq: NEEDED Status: Active Protocol: Document 03/11/24 09:36 CGR (Rec: 03/11/24 09:45 CGR [id number]) Medical Review Prior Functional Status Medical History Reviewed Yes Communication Pt is an effective verbal communicator. Mobility and Gait Pt was IND at baseline without AD. He has a hx of R shld injury and recently L hip pain after unloading his storage unit recently. 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 Social History Household Members spouse Living Arrangements House Number of Floors (Floors) Two Floors Number of Stairs To Enter/Railing? 3 steps to enter without railing, half bath on first floor, bedrooms and full bath on second floor. Home Environment Standard Height Toilet,Tub/ Shower Home Equipment Straight Cane Employment Status Retired Additional Social History Comment Pt is retired active duty [employer] . M2 OT-IP Current Condition Start: 03/11/24 09:35 Freq: Status: Active Protocol: Document 03/11/24 09:36 CGR (Rec: 03/11/24 09:45 CGR [id number]) Occupational Therapy Current Condition Current Condition Evaluation Date 03/11/24 Treatment Diagnosis L sided weakness, tingling, possible R lacunar infarct per CT Diagnosis Onset Date 03/10/24 M3 OT- IP Subjective and Pain Start: 03/11/24 09:35 Freq: Status: Active Protocol: Document 03/11/24 09:36 CGR (Rec: 03/11/24 09:45 CGR [id number]) OT- Subjective Occupational Therapy Visit Type Type Initial Evaluation Visit Start Time 08:56 Visit Stop Time 09:25 OT Pain Assessment Pain When Pain Assessed At Rest Pain Present Pain Present Denied Pain M4 OT- IP ADL's Start: 03/11/24 09:35 Freq: Status: Active Protocol: Document 03/11/24 09:36 CGR (Rec: 03/11/24 09:45 CGR [id number]) OT PIC-[id number] Comments OT Self-Feeding Comments not meal time but pt had completed breakfast and states he performed IND. OT ADL-Grooming General Evaluation Grooming Ability Standby Assistance Areas Needing Assistance Face Washing Comments OT Grooming Comments standing at sink OT ADL-Oral Care General Eval Oral Care Ability Standby Assistance Areas of Assistance Brushing Teeth Comments Oral Care Comments standing at sink OT ADL-Dressing General Eval Lower Body Dressing Ability Contact Guard Assistance Areas Needing Assistance Shoes Comments OT Dressing Comments Pt requested to slip on shoes over his own socks rather than put on hospital socks. OT ADL-Toileting General Evaluation Toileting Ability Minimal Assistance Comments OT Toileting Comments Pt sat on toilet for urination but urinated outside of the toilet requiring clean up. OT ADL-Bathing Comments OT Bathing Comments not performed M5 OT- IP IADL's Start: 03/11/24 09:35 Freq: Status: Active Protocol: Document 03/11/24 09:36 CGR (Rec: 03/11/24 09:45 CGR [id number]) OT-Instrumental Activities of Daily Living Deficits IADL Deficits Identified No Deficits Home Safety Awareness Awareness of Need for Assistance at Home Good Awareness Ability to Problem Solve Emergency Able to Problem Solve Situations Medication Management Medication Management No Deficits Identified Money Management Money Management No Deficits Identified Meal Preparation Meal Preparation No Deficits Identified Color Grinder Color Grinder No Deficits Identified Driving Driving Comments Pt was an active recycler forklift driver truck driver. M6 OT- IP Functional Cognition Start: 03/11/24 09:35 Freq: Status: Active Protocol: Document 03/11/24 09:36 CGR (Rec: 03/11/24 09:45 CGR [id number]) Cognitive Factors Limiting Selfcare Function Cognitive Ability Level of Alertness Alert Patient Orientation Name,Age,Birthday,Month,Date, Year,Day of Week,Place, Situation Attention Span Ability Capable of Focused Attention, Capable of Sustained Attention Ability to Follow Commands Able to Follow Multi-Step Commands Memory Description No Deficits Noted OT- Vision and Hearing OT- Hearing Assessment OT- Hearing Assessment WFL OT- Vision Assessment Visual Acuity WFL Visual Attentiveness WFL Occular Pursuits WFL Visual Convergence WFL Vision Assessment Comments Pt states he wears glasses as needed but was not able to state if they were for near or far vision. M7 OT- IP Mobility and Balance Start: 03/11/24 09:35 Freq: Status: Active Protocol: Document 03/11/24 09:36 CGR (Rec: 03/11/24 09:45 CGR [id number]) OT- Bed Mobility Assessment Supine to Sit Supine to Sit Assist Standby Assistance Scooting Scooting to Edge of Bed Standby Assistance OT-Transfer Assessment Sit to and From Stand Sit to and from Stand Contact Guard Assistance Transfers Transfer Ability Contact Guard Assistance, Minimal Assistance Technique Transfer Destination Bed,Chair,Toilet Transfer Technique Stand Step Pivot Devices Transfer Assistive Devices Gait Belt Comments Mobility Comments Pt leans heavy to the L and without proper placement of the L foot with gait. OT- Gait Assessment Gait Gait Assistance Required: Contact Guard Assist,Minimum Assistance Assistive Devices Assistive Device Gait Belt Comments Gait Ability Comments mobility around the room with leaning to the left and poor coordination of the LLE. OT- Balance Assessment Sitting Balance and Reactions Static Sitting Balance Ability Normal Dynamic Sitting Balance Ability Normal M8 OT- IP Objective Assessments Start: 03/11/24 09:35 Freq: Status: Active Protocol: Document 03/11/24 09:36 CGR (Rec: 03/11/24 09:45 CGR [id number]) OT Gross Range of Motion Upper Extremity Range of Motion Assessment Right Impaired ROM Impairments Pt with hx of R shld injury. OT Strength Upper Extremity Strength Assessment Left Impaired Comments Strength Comments shlds not tested d/t R shld injury. R grossly 5+/5, L 5-/5 OT- Coordination Assessment Upper Extremity Finger to Nose Test Within Functional Limits Finger Tapping Test Within Functional Limits OT-Muscle Tone Assessment Muscle Tone WNL Yes OT Sensation Assessment Comments Summary Comments Pt states numbness and tingling to the face and neck and finger tips. Edema Edema Absent M9 OT- IP Assessment and Plan Start: 03/11/24 09:35 Freq: Status: Active Protocol: Document 03/11/24 09:36 CGR (Rec: 03/11/24 10:24 CGR [id number]) OT Summary Assessment and Plan Potential Rehabilitation Potential Excellent Analytic Complexity at Evaluation Moderate Summary OT Impairments Range of Motion,Strength, Balance,Sensation,Functional Mobility,Grooming,Dressing, Toileting,Bathing,Toilet Transfers,Shower Transfers, Activity Tolerance Progress Towards Goals Progressing Toward Goals Assessment Summary Pt presents as a moderate complexity evaluation s/p admit for new onset stroke like symptoms. Pt with heavy lean to the L with mobility and poor coordination of the LLE with mobility. Pt will benefit from continue therapy services and recommend acute rehab as pt would be an excellent candidate. Pt currently refusing. Discussed case with CM, PT, nursing, and MD and will try to encourage pt to consider acute rehab. Goals Self-Feeding Goal Independent Grooming Goal Independent Dressing Goal Independent Toileting Goal Independent Bathing Goal Independent Toilet Transfer Goal Independent Shower Transfer Goal Independent Days to Meet Goals 15 Frequency of Treatment Other frequency 5x per week Treatment Plan OT Treatment Plan ADL Training,Functional Mobility,Neuromuscular Re- education,Therapeutic Exercises,Patient/Family Education,Discharge Planning Other Treatment Recommendations and Next Shower, Total body dressing. Treatment Focus Discharge Recommendations OT Discharge Recommendations Acute Rehab Transportation Needs at Discharge Private Vehicle
[2024-03-11] MEDS: ASPIRIN EC 81 MG TABLET PO (09:29)
[2024-03-11] MEDS: HEPARIN 5,000 UNIT/ML VIAL 5000 UNIT SUBCUT (09:30)
[2024-03-11] MEDS: CLOPIDOGREL 75 MG TABLET PO (09:30)
--- NOTE | 2024-03-11 11:15 | ST.IPCSEOM ---
Visit Care Team Role Provider Type Pedro Rodriguez DO Emergency Provider Physician Referring Provider Specialty: Emergency Medicine Address: [address] [place] [address], [address] Email: [email or web address] [email or web address] [email or web address] Admit Provider Physician Attending Provider Specialty: Internal Medicine Address: [address] [place] [address], [address] Fax: Email: [email or web address] Speech-Language Pathology Swallow Evaluation CASHIER Clinical Swallow Evaluation Start: 03/11/24 09:31 Freq: Status: Active Protocol: Document 03/11/24 10:21 MA (Rec: 03/11/24 10:30 MA [id number]) Clinical Swallow Evaluation Session Time Visit Start Time 08:30 Visit Stop Time 08:55 Total Visit Minutes 25 Visit Information Visit Number [address] Gilmar Paredes Reason for Referral Possible CVA Setting Assessment Location Acute Care Visit Type Note Type Initial evaluation Patient Information Identification Type Name History Per H&P: 58 year old male with past medical history of HTN, NIDDM and HLD presents with complaints of left sided deficity. Per the patient's report, the patient woke up yesterday morning around 5:30 AM and was ambulating to the bathroom. The patient states that he felt unsteady on his feet and noticed that his left side was weak. The patient also noted some numbness in his face and left side as well. However, instead of going to the ER, the patient went back and slept. The patient however was concern when he woke up again this evening and went to the hospital. The patient otherwise denies any vision or speech changes. The patient also denies any fever, chills, nausea, vomiting, diarrhea, coughing or shortness of breath. In our ER, the patient was hemodynamically stable. Per our ER physician, the patient NIH score was 0. CT/CTA of head and neck was reported by our radiologist to be normal. I did ask our ER physician to consult with oncall neurologist who did reviewed the CT/CTA scan which thought there might be sign of subacute CVA and recommended to admit the patient for observation with dual antiplatelet therapy and MRI of brain in AM. Of note, per our ER physician, patient strength were equal on evaluation but the only complaints was left sided numbness though exam was non focal. Pt referred for ST evaluation d/t possible CVA and in order to assess speech/language/cog/ swallow. Subjective Observations Pt sitting upright in bed, awake, alert and agreeable to evaluation. Pt Ox4. Pt denies any speech/cog/swallow difficulties. ST screened speech/langauge/cog, which appear WNL at this time. Reported by Patient/Caregiver Current Diet Regular (IDDSI 7) Baseline Feeding Method Independent in self-feeding The IDDSI Framework Protocol: IDDSI.1 Objective Assessment Mental Status Alert,Responsive,Cooperative Oral Integrity WFL Dentition Within normal limits Comment Pt reported mild left facial numbness and numbness in his left fingertips. Oral motor exam revealed WFL lingual, labial and buccal strength and ROM. Food and Liquid Trials Position During Assessment Upright (90 degrees) Liquids Trialed Thin (IDDSI 0) Solid Trials Soft & Bite-sized (IDDSI 6), Regular (IDDSI 7) Administration Type Self-feeding Oral Impairment Within normal limits Oral Phase Comments Pt consumed yue cracker, 1/ 2 peanut butter and jelly sandwich and about 4 oz of thin water via cup. For solids , Pt demonstrated adequate bite size and rate, adequate mastication time and bolus formation and control, timely ap transport, minimal. For liquids via straw Pt consumed thin water demonstrating good oral acceptance and containment, timely ap transport. Pharyngeal Impairment Within normal limits Pharyngeal Phase Comments Pt exhibited no overt s/s of aspiration with all solid/ liquid trials, such as coughing or choking. Pt with clear vocal quality post swallows and reported no feelings of food stuck in throat. Fatigue/Endurance Endurance WNL The IDDSI Framework Protocol: IDDSI.1 Findings Swallowing Function Within normal limits Severity of Swallow Impairment Within normal limits Prognosis Good Based on Cognitive status,Family support Impact on Safety and Functioning No limitations Recommendations Instrumental Assessment No Swallowing Treatment No Recommended Solids Regular (IDDSI 7) Recommended Liquids Thin (IDDSI 0) Other Recommendations Pt with WNL swallow function. ST recommends regular solids and thin liquids with the below safe swallowing strategies in place. ST recommends re-referral for speech if changes in status occur. Safety Precautions/Swallowing Remain upright (90 degrees) Recommendations during all oral intake,Upright position at least 30 minutes after meals,Small bites and sips when eating,Slow rate; swallow between bites, Alternate liquids and solids Medication Recommendations As Tolerated Education Patient/Caregiver Education Described results of evaluation,Patient expressed understanding of evaluation
[2024-03-11 12:00] VITALS: BP 159/100; PULSE 87; RESP 16; TEMP 36.7; O2SAT 99
--- NOTE | 2024-03-11 12:18 | DI.MRI.S_ITS ---
PROCEDURE: MR HEAD/BRAIN WO CON INDICATIONS: CVA, L numbness / weakness TECHNIQUE: Noncontrast axial T1 spin echo, axial T2 fast spin echo, sagittal and axial FLAIR, coronal T2 fast spin echo, axial gradient echo, axial diffusion and ADC through the brain. COMPARISON: [facility], CT, CT HEAD/BRAIN WO CON, 03/10/2024, 19:01. FINDINGS: Image quality: Excellent. CSF Spaces: Basal cisterns are patent. No extra-axial fluid collections. Ventricles are normal in size and shape. Brain: Acute infarct of the right basal ganglia, with T2 hyperintense signal, low signal on ADC map, and intermediate signal on the T2 weighted FLAIR sequence. Leukoaraiosis, commonly caused by small vessel ischemic disease. Skull and face: Calvarium has normal marrow signal. Orbits appear normal. Sinuses: Sinuses and mastoids are clear. 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 Dictated by: Perry Sharma M.D. on 03/11/2024 at 14:48 Approved by: Perry Sharma M.D. on 03/11/2024 at 14:53
--- NOTE | 2024-03-11 12:34 | DIET.CONS ---
Dietary Consultation Note Admission Date: 03/10/2024 20:43 Assessment: 58 y M admitted for possible CVA. Nutrition consulted for DM and swallow eval. ST completed swallow eval w/ pt. Attempted visit x2. Pt working with therapies or out of room getting test/MRI. PMH of diabetes with A1c of 13.2% on 03/10/24. Ht: 165.1 cm Wt: 68.039 kg BMI: 25.0 Last BM: 03/10/24 (03/10/24 22:04) MNA: Caio Score: 22 Diet: 03/10/24 Breakfast Carbohydrate Consistent Diet Diet Modifications: Carbohydrate level: Medium (3 CHO) Reflex DM orders: No 03/11/24 Breakfast Carbohydrate Consistent Diet Diet Modifications: Carbohydrate level: Medium (3 CHO) Reflex DM orders: No Food Texture: Level 7 - Regular Liquid Consistency: Level 0 - Thin Labs: RBC 4.33 X10^6/uL (4.5-5.9) L 03/11/24 05:30 Hgb 12.4 g/dL (13.5-17.5) L 03/11/24 05:30 Hct 36.7 % (41-53) L 03/11/24 05:30 Creatinine 1.72 mg/dL (0.66-1.25) H 03/11/24 05:30 Hemoglobin A1c 13.2 % (4.0-6.0) H 03/10/24 18:59 Nutrition Diagnosis: Altered nutrition related lab values r/t endocrine dysfunction aeb A1c 13.2% on 03/10/24 Interventions: 1. F/u tomorrow Monitoring/Evaluations: BG Electronically Signed by: Minerva Cuello 03/11/24 12:34 Clinical Dietitian [address] [address]
--- NOTE | 2024-03-11 13:26 | CM.DANOTE ---
Patient is a 58 yo male who was admitted INPT Status on 03/10/24 for CVA r/o. Pt has [facility] [facility] for insurance and his PCP is Dr. Alejandra on the [facility] clinic. EMR was reviewed. Per MD, pt to have MRI and Echo to determine likely CVA and to work with PT/OT/ST. Per PT/OT, recommending Acute Inpt Rehab. ST, modified diet slightly but pt able to communicate and swallow. SW met bedside with pt and spouse and explained role and they confirm they live in [place] at home and both are active and independent at baseline. Pt drives, does not use DME for ambulation, denies any hx of HH or SNF and is currently retired from the . NETTIE discussed Acute Inpt Rehab and provided the brochure from [facility] Acute rehab to review and discussed their services and length. Pt adamant that he wants to discharge home, ideally today. Spouse encouraging pt to consider Acute Rehab but pt wanting to d/c home. MRI scheduled for 1430, Echo complete and waiting to be read. NETTIE updated RN and will see imaging results and then potential for d/c home with spouse today if he continues to decline Acute Rehab and is medically stable. OGSIA Carrillo Discharge Planning/Care Management CM Discharge Assessment Start: 03/11/24 13:23 Freq: Status: Active Protocol: Document 03/11/24 13:24 BF (Rec: 03/11/24 13:25 BF [id number]) Discharge Planning Assessment Assigned Teacher Public Health GOSIA Burton DPOA/Assigned Designee Name spouse Advance Directives? No Advance Directives on File No History Provided By Patient,Significant Other, Medical Record Has Patient been admitted in last 30 No days? Prior Living Arrangements House Household Members spouse Type of transporation used prior to Drives own vehicle admit Independent with ADL's Yes Is patient alert and oriented? Yes Caregiver for Another No Comment Recommendation of Acute Inpt Rehab, pt currently declines Barriers to Discharge No Discharge Plan Inpatient Rehab Unit Transportation Arrangement Spouse bedside Referrals Initiated Other Additional Comment Recommendation of Acute Inpt Rehab, pt declines at this time Whiteboard Updated in Patient Room with Yes name and ext. # of Teacher Public Health Review Status In Process Please Provide Date Initial DC 03/11/24 Assessment Was Performed Next Review Type Continued Stay Review
--- NOTE | 2024-03-11 15:04 | PT.IIE ---
Physical Therapy Inpatient Evaluation/Re-Eval M1 PT/OT-IP Prior Functional Status Start: 03/11/24 09:35 Freq: NEEDED Status: Active Protocol: Document 03/11/24 14:37 MB (Rec: 03/11/24 15:04 MB [id number]) Medical Review Prior Functional Status Medical History Reviewed Yes Communication Pt is an effective verbal communicator. Mobility and Gait Pt was IND at baseline without AD. He has a hx of R shld injury and recently L hip pain after unloading his storage unit recently. 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 Social History Household Members spouse Living Arrangements House Number of Floors (Floors) Two Floors Number of Stairs To Enter/Railing? 3 steps to enter without railing, half bath on first floor, bedrooms and full bath on second floor. Home Environment Standard Height Toilet,Tub/ Shower Home Equipment Straight Cane Employment Status Retired Additional Social History Comment Pt is retired active duty [employer] . M2 PT-IP Current Condition Start: 03/11/24 10:38 Freq: NEEDED Status: Active Protocol: Document 03/11/24 14:37 MB (Rec: 03/11/24 15:04 MB [id number]) Physical Therapy Current Condition Current Condition Evaluation Date 03/11/24 Treatment Diagnosis Symptoms of stroke M3 PT-IP Subjective Start: 03/11/24 10:38 Freq: NEEDED Status: Active Protocol: Document 03/11/24 14:37 MB (Rec: 03/11/24 15:04 MB [id number]) Subjective Physical Therapy Visit Type Type Initial Evaluation Visit Start Time 14:37 Visit Stop Time 14:53 Number of FORMULA CLERK Visits 0 Physical Therapy Visit Comments Patient Comments Pt with little verbalizations. States he does not want to go to rehab. Therapy Pain Assessment Pain When Pain Assessed At Rest Pain Present Pain Present Denied Pain M4 PT-IP Mobility and Gait Start: 03/11/24 10:38 Freq: NEEDED Status: Active Protocol: Document 03/11/24 14:37 MB (Rec: 03/11/24 15:04 MB [id number]) PT-Bed Mobility Assessment Rolling Type of Rolling Roll to Left Level of Assist Standby Assistance Supine to Sit Supine to Sit Standby Assistance,Head of Bed Elevated Scooting Scooting to Edge of Bed Standby Assistance PT-Transfer Assessment Sit to and From Stand Sit to and from Stand Contact Guard Assistance,1 Person Assistance,Use of Upper Extremities Equipment Transfer Assistive Device Gait Belt,Front Wheeled Walker Orthotic/Prosthetic Devices or Brace: No Transfers Transfer Destination Chair Transfer Technique Ambulation Transfer Ability Level of Assist Contact Guard Assistance,1 Person Assistance,Use of Upper Extremities Gait Assessment Gait Gait Assistance Required: Contact Guard Assist,1 Person Assist Distance (Feet) 40 Able to Maintain Weight Bearing Status Yes During Gait Assistive Devices Assistive Device Gait Belt,Front Wheeled Walker Orthotic/Prosthetic Devices or Brace: No Gait Deviations General Gait Pattern Decreased Stride Length, Decreased Feet Clearance,Step- to Gait,Wide Based Gait Factors Limiting Gait Function Factors Limiting Gait Function Abnormal Tonal Influences, Decreased Strength, Incoordination,Limited Range of Motion,Poor Balance Comments Gait Comments Pt with mild functional foot drop on the left: tried several gait trials with RW, then with left [employer] SUPERVISOR and then PT holding gait belt from behind and mild weakness from left knee and ankle for gait altering pattern and increasing imbalance PT-Balance Assessment Sitting Balance and Reactions Static Sitting Balance Ability Good Dynamic Sitting Balance Ability Good Standing Balance and Reactions Static Standing Balance Ability Good Dynamic Standing Balance Ability Fair M5 PT-IP Objective Assessments Start: 03/11/24 10:38 Freq: NEEDED Status: Active Protocol: Document 03/11/24 14:37 MB (Rec: 03/11/24 15:04 MB [id number]) Orientation Orientation/Cognition Level of Alertness Alert Orientation Name,Age,Birthday,Month,Date, Year,Day of Week,Place, Situation Language Function Ability No Deficits Noted Safety Awareness Decreased Safety Awareness Memory Description No Deficits Noted Gross Range of Motion Upper Extremity ROM Impairments Defer to OT Lower Extremity ROM Assessment Left Impaired Impairments Left ankle moves in inversion and supination pattern for PF and decreased great toe extension Strength Lower Extremity Strength Assessment Left Impaired Hip Left hip flexion 4+/5 Knee Left knee flexion and extension 4+/5 MMT, functional weakness extension wit Ankle Left great toe extension 4/5; DF 4+/5 and functional foot drop, PF 4/5 Coordination Assessment Gross Coordination Gross Coordination Impaired Assessment Foot Tapping Test Minimal Impairment Heel on Nunes Test Minimal Impairment Coordination Comments LLE with minimal impairment and right normal Sensation Assessment Sensation Gross Sensation WNL Light Touch Intact Muscle Tone Muscle Tone WNL No Comments Muscle Tone Comments Mild PF tone LLE M6 PT-IP Treatment Start: 03/11/24 10:38 Freq: NEEDED Status: Active Protocol: Document 03/11/24 14:37 MB (Rec: 03/11/24 15:04 MB [id number]) Physical Therapy Treatment Education Education Provided Safety Other Treatments Other Treatment Performed Extensive education on benefits of acute rehab and pt is not receptive to education M7 PT-IP Assessment and Plan Start: 03/11/24 10:38 Freq: NEEDED Status: Active Protocol: Document 03/11/24 14:37 MB (Rec: 03/11/24 15:04 MB [id number]) PT Summary Assessment and Plan Potential Rehabilitation Potential Excellent Status of Condition at Evaluation Evolving Summary Impairments ROM,Strength,Balance, Coordination,Tone,Bed Mobility ,Transfers,Gait,Activity Tolerance Progress Towards Goals Progressing Toward Goals Assessment Summary Pt is a 58 y/o male presenting with left LE weakness and imbalance with testing today. He his mild left PF tone with MMT and functional foot drop with gait. He requires CGA for short gait. He will benefit from acute rehab at d/c to maximize I as he was previously I at baseline, retired. Goals Bed Mobility Goal Independent Transfer Goal Independent Gait Goal Independent Gait Distance 100 Other Goals Gait with LRAD Pt will ascend and descend 3 steps with no rail to allow safe home entry. Pt will perform WNLs on standardized balance test to decrease fall risk. Days to Meet Goals 5 Frequency of Treatment Frequency Of Treatment Once a Day Treatment Plan Physical Therapy Treatment Plan Bed Mobility Training,Transfer Training,Gait Training, Therapeutic Exercise,Balance Retraining,Discharge Planning, Hot or Cold Pack,Neuromuscular Re-ed,Coordination Retraining ,Manual Therapy Other Recommendations and Next Treatment Stair and balance training, Focus try cane Precautions Other Precautions Fall risk, poor insight to condition Weight Bearing Status Allowed Weight Bearing Amount (enter % No restrictions or #) (%) Recommendations To Nursing Amount of Assist Needed 1 Person Assist Discharge Recommendations PT Discharge Recommendations Acute Rehab Transportation Needs at Discharge Private Vehicle,Wheelchair/ Cabulance
[2024-03-11 16:00] VITALS: BP 175/110; PULSE 95; TEMP 36.7; O2SAT 97
--- NOTE | 2024-03-11 16:36 | P.DS_ITS ---
History of Present Illness History of Present Illness Date Patient Seen: 03/11/24 Time Patient Seen: 16:36 Chief complaint: Feel like having a stroke LKN Last Night Narrative: 58 year old male with past medical history of HTN, NIDDM and HLD presents with complaints of left sided deficity. Per the patient's report, the patient woke up yesterday morning around 5:30 AM and was ambulating to the bathroom. The patient states that he felt unsteady on his feet and noticed that his left side was weak. The patient also noted some numbness in his face and left side as well. However, instead of going to the ER, the patient went back and slept. The patient however was concern when he woke up again this evening and went to the hospital. The patient otherwise denies any vision or speech changes. The patient also denies any fever, chills, nausea, vomiting, diarrhea, coughing or shortness of breath. In our ER, the patient was hemodynamically stable. Per our ER physician, the patient NIH score was 0. CT/CTA of head and neck was reported by our radiologist to be normal. I did ask our ER physician to consult with oncall neurologist who did reviewed the CT/CTA scan which thought there might be sign of subacute CVA and recommended to admit the patient for observation with dual antiplatelet therapy and MRI of brain in AM. Of note, per our ER physician, patient strength were equal on evaluation but the only complaints was left sided numbness though exam was non focal. Discharge Providers Provider Date of admission: 03/10/24 20:43 Discharge Date: 03/11/24 Consults: 03/10/24 20:56 Consult to Occupational Therapy Evaluate & Treat Comment: Physician Instructions: Evaluate and treat Consult to Physical Therapy Evaluate & Treat Comment: Physician Instructions: Evaluate and Treat 03/11/24 00:23 Consult to Dietitian, Adult Routine Comment: Reason For Exam: diabetes and swallow evluation 03/11/24 10:00 Consult to Speech Therapy Evaluate & Treat Comment: Physician Instructions: Evaluate and treat Discharge provider: Fabian Proctor DO Summary Hospital Course Discharge Diagnosis: Acute CVA HTN. HLD. DM2. Hospital Course: This is a 58 year old male with PMH of DM2, HTN and HLD who presented with L sided facial and extremity weakness and numbness. MRI confirmed a R sided infarct. He was started on DAPT with improvement in symptoms. He was evaluated by therapy, and recommended for acute rehab. However, the patient was adamant about going home. He was able to understand the risks of leaving, including worsened outcome jail after not following recommendations for acute rehab, and possible worsening of symptoms after discussion with him. His BP was elevated slightly on discharge, but his medications had been held and will resume on discharge. Further titration of home medications is recommended after discharge depending on BP moving forward. He was discharged to complete 21 days of DAPT with aspirin and plavix, then recommended to change to plavix jail instead of 81 mg of aspirin. His home statin was also changed to high intensity atorvastatin. Telemetry showed no abnormalities, and TTE was unremarkable without evidence of PFO. He discharged earlier than expected, asking to be released on the evening of 03/11 even after the above discussion regarding risks of leaving. Time Spent with Patient Time spent: Greater than 30 minutes Exam Vital Signs (past 8 hours): - 03/11/24 12:00 Temperature 98.1 F Pulse Rate 87 Respiratory Rate 16 Blood Pressure 159/100 H Pulse Oximetry 99 Oxygen Delivery Method Room Air Oxygen Flow Rate 0 Narrative Exam Narrative: GENERAL: The patient is not in any acute distressed. Awake and alert. HEENT: Nonicteric sclerae, PERRLA, EOMI. Oropharynx clear. Moist mucous membranes. Conjunctivae appear well perfused. HEART: Regular rate and rhythm without murmurs. No lower extremities edema. LUNGS: Clear to auscultation bilaterally. No wheezing, crackles or rhonchi ABDOMEN: Soft, positive bowel sounds, nontender. SKIN: No rash, no excessive bruising, petechiae, or purpura. NEUROLOGIC: AxO x 3. Cranial nerves II-XII intact. Reported distal fingertip numbness on L, strength +5/5 bilaterally. Objective Labs 03/11/24 05:30 03/11/24 05:30 Labs: Laboratory Results - last 24 hr 03/10/24 03/10/24 03/11/24 18:59 19:50 05:30 WBC 7.2 6.5 RBC 4.87 4.33 L Hgb 13.6 12.4 L Hct 41.7 36.7 L MCV 85.7 84.7 MCH 27.9 28.5 MCHC 32.5 33.7 RDW 13.8 13.7 Plt Count 346 286 Neut % (Auto) 58.7 67.2 Lymph % (Auto) 31.2 22.8 L [place] % (Auto) 5.7 5.9 Eos % (Auto) 3.6 3.3 Baso % (Auto) 0.8 0.8 Neut # (Auto) 4300 4400 Lymph # (Auto) 2300 1500 [place] # (Auto) 400 400 Eos # (Auto) 300 200 Baso # (Auto) 100 0 PT 9.8 INR 0.9 APTT 38 H Sodium 132 L 135 L Potassium 5.0 4.1 Chloride 100 107 Carbon Dioxide 20 L 22 BUN 34 H 30 H Creatinine 1.75 H 1.72 H Estimated GFR 45 L 46 L BUN/Creatinine Ratio 19.4 17.4 Glucose 327 H 181 H D Hemoglobin A1c 13.2 H Calcium 9.2 8.6 Magnesium 2.3 Total Bilirubin 0.4 0.3 AST 20 18 ALT 14 11 Alkaline Phosphatase 108 89 Total Creatine Kinase 58 Troponin I < 0.012 Total Protein 7.5 6.6 Albumin 4.2 3.5 Globulin 3.3 3.1 Albumin/Globulin Ratio 1.3 1.1 Triglycerides 128 Cholesterol 148 LDL Cholesterol, Calc 78 HDL Cholesterol 44 Lipase 296 Urine Color Yellow Urine Appearance Clear Urine pH 7.0 Ur Specific [place] <=1.005 Urine Protein Trace H Urine Glucose (UA) 3+ H Urine Ketones Negative Urine Occult Blood Negative Urine Nitrate Negative Urine Bilirubin Negative Urine Urobilinogen 0.2 Ur Leukocyte Esterase Negative Urine RBC 0-1/hpf Urine WBC 0-1/hpf Ur Squamous Epith Cells 0-1 /hpf Urine Bacteria Occasional (0-1) Ur Culture Indicated? Cult not indicated Vol Urine Centrifuged 10ml (spun) Ethyl Alcohol < 10 PFSH Social History household members: spouse Smoking Status: Never smoker alcohol intake: never Discharge Plan Discharge Plan Patient Disposition: Home Provider Discharge Comment: You were admitted to the hospital with a stroke, despite recommendation for acute rehab you elected to discharge home. Recommend ambulating with an assistive device at all times to reduce fall risk. Continue baby aspirin and clopidogrel for 3 weeks, after 3 weeks from today, stop taking your baby aspirin and change to clopidogrel only. I have changed your simvastatin to a stronger statin medication as well. Please follow up with PCP as soon as possible. Discharge orders & Medications Prescriptions: New clopidogrel 75 mg tablet 75 mg PO DAILY 90 Days Qty: 90 0RF atorvastatin 80 mg tablet 80 mg PO BEDTIME 90 Days Qty: 90 0RF Continued aspirin 81 mg tablet,delayed release (DR/EC) 81 mg PO DAILY loratadine 10 mg tablet 10 mg PO DAILY losartan 25 mg tablet 50 mg PO BEDTIME metformin 500 mg tablet extended release 24 hr 500 mg PO BID Jardiance 25 mg tablet 25 mg PO DAILY allopurinol 300 mg tablet 300 mg PO DAILY Discontinued simvastatin 20 mg tablet 20 mg PO ONCE PM Diet/Activity/Treatments Diet: Diet as Tolerated and Regular Activity: As tolerated Visit Report/Discharge Packet Instructions: DI for Stroke-Ischemic, How to Prevent Falls Stand Alone Forms: Patient Portal/API, Stroke Signs & Symptoms
--- NOTE | 2024-03-11 17:08 | PC.NURSE ---
Discussed d/c instructions with Patient and his spouse, including medication changes, lifestyle changes, and s/s of stroke. Reinforced that patient needs to call 911 with any s/s of stroke. IV and tele d/c'd. All belongings confirmed, and patient exited unit via w/c with spouse and this RN.
== END 2024-03-11 17:00 | disposition home or self-care (01) | DRG 65 ==
LOC: ED 20:26 → AC 21:14
PROVIDERS: Admitting Provider Internal Medicine; Emergency Provider Emergency Medicine; Referring Provider Emergency Medicine; Visit Provider Internal Medicine
DX: I63.9 Cerebral infarction, unspecified (principal); G81.94 Hemiplegia, unspecified affecting left nondominant side; R20.0 Anesthesia of skin; I10 Essential (primary) hypertension; E78.5 Hyperlipidemia, unspecified; R29.700 NIHSS score 0; R29.703 NIHSS score 3; E11.9 Type 2 diabetes mellitus without complications; Z79.84 Long term (current) use of oral hypoglycemic drugs
CPT/HCPCS: 36415; 70450; 70496; 70498; 70551; 80053; 80061; 80320; 81001; 82550; 82962; 83036; 83690; 83735; 84484; 85025; 85610; 85730; 92610; 93005; 93306; 96374; 97162; 97166; 97535; 99285; G0378; J1644; J1815; J2405; Q9967